=== PATIENT | female | born 1995 | race Two or more races ===

== ENCOUNTER 2019-05-31 12:34 | Emergency (ER) | payer MEDICAID ==
[~2019-05-31] VITALS: Ht 152.4 cm; Wt 84.8 kg
[2019-05-31 13:11] LABS: Basophils # (auto) 0.1 uL; Eosinophils # (auto) 0 uL; Hematocrit 39.8 % (36.0-46.0); Mean Corpuscular Hgb Conc. 33.5 g/dL (32.0-36.0); Monocytes # (auto) 0.9 uL
[2019-05-31 13:13] LABS: Basophils % (auto) 0.5 % (0.0-2.0); Eosinophils % (auto) 0.3 % (0.0-7.0); Hemoglobin 13.3 g/dL (12.2-16.2); Lymphocytes # (auto) 1.2 uL; Lymphocytes % (auto) 11.1 % (10.0-50.0); Mean Corpuscular Hemoglobin 26.5 pg (28.0-32.0); Monocytes % (auto) 7.9 % (0.0-12.0); Neutrophils # (auto) 8.9 uL; Neutrophils % (auto) 80.2 % (37.0-80.0); Nucleated Red Blood Cells % 0.1 %; Platelet Count (auto) 271 10^3/uL (140-450); Red Blood Cells 5.03 10^6/uL (4.0-5.20); Red Cell Distribution Width 13.2 % (11.8-14.3); White Blood Cell 11.1 10^3/uL (4.4-10.8)
[2019-05-31 13:19] LABS: Urine Bacteria MANY /hpf (None Seen); Urine Blood 1+ /uL (Negative); Urine Specific Gravity 1.017 (1.001-1.035); Urine WBC 152 /hpf (0 - 5)
[2019-05-31 13:37] LABS: Albumin 3.7 g/dL (3.4-5.0); Calcium 8.8 mg/dL (8.5-10.1); Potassium 3.5 mmol/L (3.5-5.1)
[2019-05-31 13:40] LABS: BUN/Creatinine Ratio 14.3; Bilirubin, Total 0.4 mg/dL (0.2-1.0)
[2019-05-31 14:32] VITALS: BP 119/89
[2019-05-31] MEDS ORDERED: cefTRIAXone SOD 1,000 MG VL IM ONE (15:30)
[2019-05-31] MEDS ORDERED: cefTRIAXone W LIDOCAINE 1 GM IM IM ONE (15:45)
[2019-05-31] MEDS ORDERED: cefTRIAXone SOD 1,000 MG VL ONE (15:49)
[2019-05-31] MEDS ORDERED: LIDOCAINE 2% (LOCAL ANESTH.) PF 5ml SDV ONE (15:49)
== END 2019-05-31 16:12 | disposition home or self-care (01) ==
LOC: ER 12:34
DX: N39.0 Urinary tract infection, site not specified (principal)
CPT/HCPCS: 36415; 71046; 80053; 81001; 81025; 83690; 85025; 96372; 99284; J0696; J2001